=== PATIENT | female | born 1995 | race Caucasian/White ===

== ENCOUNTER 2016-11-18 17:31 | Emergency (ER) | payer OTHER ==
[2016-11-18] MEDS ORDERED: IBUPROFEN 800 MG TABLET ONE (18:12)
[2016-11-18] MEDS ORDERED: CEFTRIAXONE SODIUM 1 G VIAL ONE (18:12)
== END 2016-11-18 19:50 | disposition home or self-care (01) ==
LOC: ED 17:31
DX: L03.032 Cellulitis of left toe (principal); E11.9 Type 2 diabetes mellitus without complications; J45.909 Unspecified asthma, uncomplicated
CPT/HCPCS: 99283 ×2; 10060 ×2; 96372; A9270; J0696